=== PATIENT | male | born 2005 | race Hispanic/Latino ===

== ENCOUNTER 2024-07-17 22:07 | Inpatient (IN) | payer SELFPAY ==
[2024-07-18] MEDS ORDERED: Ipratropium/Albuterol 3 ML NEB ONE ×2 (01:02→01:15)
[2024-07-18] MEDS ORDERED: Dexamethasone 10 MG/ML VIAL ONE (01:08)
[2024-07-18 02:56] LABS: Hemoglobin 14.9 g/dL (13.5-17.5); Mean Corpuscular HGB CONC 33.1 g/dL (32.0-36.0); Mean Corpuscular Hemoglobin 31.9 pg (27.0-33.0); Mean Corpuscular Volume 96.4 fL (81.2-95.1); Mean Platelet Volume 10.6 fL (7.4-10.4); RBC Distribution Width 12.6 % (11.5-14.5); Red Blood Cell (RBC) Count 4.67 10x6/uL (4.32-5.72); White Blood Cell (WBC) Count 5.19 10x3/uL (3.5-10.5)
[2024-07-18] MEDS ORDERED: Magnesium 2 GM/50 ML BAG (IN WATER) ONE (02:56)
[2024-07-18 03:08] LABS: ALT (SGPT) 27 U/L (Less than 45); AST (SGOT) 25 U/L (11-34); Albumin 4.5 g/dL (3.1-4.5); Alkaline Phosphatase 71 U/L (40-110); Anion Gap 14 mmol/L (10-20); BUN (Urea Nitrogen) 14 mg/dL (8.9-20.6); Bilirubin, Total 1.3 mg/dL (0.3-1.2); Calc. Creatinine Clearance 0 mL/min (70-130); Calcium 9.3 mg/dL (7.8-10.44); Carbon Dioxide 22 mmol/L (22-29); Chloride 107 mmol/L (98-107); Estimated GFR 113; Glucose 99 mg/dL (70-105); Potassium 3.7 mmol/L (3.5-5.1); Protein, Total 7.5 g/dL (6.0-8.3); Sodium 139 mmol/L (136-145)
[2024-07-18 03:11] LABS: Platelet Count 131 10x3/uL (150-450)
[2024-07-18 03:12] LABS: #Basophils 0.03 10x3/uL (0.0-0.2); #Eosinophils Less than 0.03 10x3/uL (0.0-0.5); #Neutrophils 4.29 10x3/uL (1.5-8.4); %Basophils 0.6 % (0.0-2.0); %Eosinophils 0.2 % (0.0-6.0); %Lymphocytes 10.4 % (18.0-47.0); %Monocytes 5.8 % (0.0-10.0); %Neutrophils 82.6 % (40.0-75.0)
[2024-07-18] MEDS ORDERED: Calcium Carbonate 500 MG ChewTAB PO PRN (04:48)
[2024-07-18] MEDS ORDERED: Zolpidem Tartrate 5 MG TAB PO PRN (04:48)
[2024-07-18] MEDS ORDERED: Senokot S 8.6-50 MG TAB PO PRN (04:48)
[2024-07-18] MEDS ORDERED: Ondansetron PF 4 MG/2 ML Vial IVP PRN (04:48)
[2024-07-18] MEDS ORDERED: Ipratropium/Albuterol 3 ML NEB NEB PRN (04:50)
[2024-07-18] MEDS ORDERED: Benzocaine/Menthol 1 LOZ LOZ PO PRN (04:52)
[2024-07-18 05:18] VITALS: BMI 27.7
[2024-07-18] MEDS: Potassium Chloride 20 MEQ TAB PO SCH (05:46)
[2024-07-18] MEDS: methylPREDNISolone Sod Succ/PF 125 MG/2 ML VIAL IVP SCH (05:47)
[2024-07-18] MEDS: Ipratropium/Albuterol 3 ML NEB NEB SCH (07:27)
[2024-07-18] MEDS: Mometasone 200 MCG/Formoterol 5 MCG 60 PUFF INHALER INH SCH (07:30)
[2024-07-18] MEDS: Famotidine 20 MG TAB PO SCH (09:55)
[2024-07-18] MEDS: Benzonatate 100 MG CAP PO SCH (09:55)
[2024-07-18] MEDS: Sodium Chloride 0.9% 500 ML IV SCH (14:58)
[2024-07-18] MEDS: Acetaminophen 325 MG TAB PO PRN (20:59)
[2024-07-18] MEDS: hydrOXYzine 25 MG TAB PO SCH (20:59)
[2024-07-18] MEDS: Guaifenesin DM 100-10/5 ML UDCUP PO PRN (21:57)
[2024-07-19 04:20] LABS: Hematocrit 45.3 % (38.8-50.0); Hemoglobin 15.6 g/dL (13.5-17.5); Mean Corpuscular HGB CONC 34.4 g/dL (32.0-36.0); Mean Corpuscular Volume 95.8 fL (81.2-95.1); Platelet Count 160 10x3/uL (150-450); RBC Distribution Width 12.8 % (11.5-14.5); Red Blood Cell (RBC) Count 4.73 10x6/uL (4.32-5.72); White Blood Cell (WBC) Count 9.11 10x3/uL (3.5-10.5)
[2024-07-19 04:29] LABS: Anion Gap 12 mmol/L (10-20); BUN (Urea Nitrogen) 18 mg/dL (8.9-20.6); Calc. Creatinine Clearance 162 mL/min (70-130); Calcium 9.5 mg/dL (7.8-10.44); Carbon Dioxide 22 mmol/L (22-29); Chloride 110 mmol/L (98-107); Estimated GFR 126; Glucose 124 mg/dL (70-105); Sodium 139 mmol/L (136-145)
[2024-07-19 05:27] LABS: Band 20 % (5-11); Large Platelets SLIGHT (None Seen); Lymphocytes 7 % (21-51); MDiff Complete? YES; Monocytes 5 % (0-10); Neutrophil 68 % (42-75); Platelet Adequacy Comment Appears Adequate; RBC Morphology Within Normal Limits; Vacuoles SLIGHT
[2024-07-19] MEDS: FLU (Fluarix Triv) TS24-25(6MOS UP)/PF 45 MCG/0.5 ML Syringe IM ONE ×2 (09:35→09:47)
[2024-07-19] MEDS: Doxycycline 100 MG CAP PO SCH (09:47)
[2024-07-19 11:28] VITALS: TEMP 98.7
[2024-07-19 12:28] VITALS: BP 124/83
== END 2024-07-19 12:36 | disposition home or self-care (01) | DRG 189 ==
LOC: CSHERS 22:07 → CSHTELE 07-18 04:52 → OBSVTOIN 07-19 08:35
PROVIDERS: ADMIT Student in an Organized Health Care Education/Training Program; ATTEND Internal Medicine
DX: J96.01 Acute respiratory failure with hypoxia (principal); J45.901 Unspecified asthma with (acute) exacerbation; D69.6 Thrombocytopenia, unspecified; R00.0 Tachycardia, unspecified
CPT/HCPCS: 36415; 71045; 80048; 80053; 85025; 87428; 90656; 94640; 94664; 94760; 96374; 96375; 96376; G0378; J1100; J2919; J3475; J7030; J7620